=== PATIENT | female | born 1970 | race Caucasian/White ===

== ENCOUNTER 2016-12-27 10:44 | Day surgery (SDC) | payer OTHER ==
[2016-12-20 14:33] VITALS: BMI 24.4
[2016-12-27] VITALS (12 sets, daily range): BP systolic 101–132; BP diastolic 37–94; PULSE 62–96; RESP 16–29; Ht 167.6 cm; Wt 67.3 kg
[~2016-12-27] VITALS: Ht 167.6 cm; Wt 67.3 kg
[~2016-12-27 10:44] MED LIST: NORE1TAB27 PO
[2016-12-27] MEDS ORDERED: SOD CHLORIDE 0.9% 1,000 ML IV SCH (11:30)
[2016-12-27] MEDS ORDERED: CLINDAMYCIN 600 MG/D5W (PMX) 50 ML IVPB ONE ×2 (11:30→14:13)
[2016-12-27] MEDS ORDERED: BUPIVACAINE 0.25% (MPF) 30 ML INJ ONE (13:00)
[2016-12-27] MEDS ORDERED: PROPOFOL 20 ML ONE (13:06)
[2016-12-27] MEDS ORDERED: SUCCINYLCHOLINE CHLORIDE 100 MG/5 ML SYG IV ONE (13:06)
[2016-12-27] MEDS ORDERED: MIDAZOLAM 1 MG/ML 2 ML INJ ONE ×2 (13:06→14:57)
[2016-12-27] MEDS ORDERED: ROPIVACAINE 0.5 % 30 ML VIAL ONE (13:06)
[2016-12-27] MEDS ORDERED: ROCURONIUM 50 MG INJ ONE (13:06)
[2016-12-27] MEDS ORDERED: ONDANSETRON 4 MG INJ ONE (14:14)
[2016-12-27] MEDS ORDERED: DEXAMETHASONE 4 MG/ML 1 ML INJ ONE (14:14)
[2016-12-27] MEDS ORDERED: KETOROLAC 30 MG INJ ONE (14:36)
--- NOTE | 2016-12-27 14:49 | OPR ---
DATE OF OPERATION: 12/27/2016 INDICATION: This is a 46-year-old female with symptomatic gallstones. She requests surgical excisi on of her gallbladder. Risks, alternatives, benefits, and personnel were discussed with patient. P germania expressed understanding and consents to the operation. PREOPERATIVE DIAGNOSIS: Symptomatic gallstones. POSTOPERATIVE DIAGNOSIS: Symptomatic gallstones. OPERATION PERFORMED: 1. Laparoscopic cholecystectomy. 2. Therapeutic injections [place] [address]. SURGEON: Rafael Small MD TREATER: Jorge Florez MD SPECIMENS: Gallbladder. COMPLICATIONS: None. ANESTHESIA: General. PROCEDURE: The patient was taken to the OR and prepped in the usual sterile fashion. Surgical time out was performed. IV antibiotics were given. Infraumbilical incision was made transversely with a 15 blade. Dissection cautery was carried down to the fascia which was divided with curved [place] sci ssors. An 0 Vicryl U-stitch was placed into the fascia. Balloon Rico trocar was introduced. Pne umoperitoneum was established. Midepigastric 12 mm optical trocar and right upper quadrant and righ t upper flank 5 mm optical trocars are placed under direct visualization. Upon initial inspection, there were some adhesions to the gallbladder which were taken down bluntly. The cystic duct was russell ntified. The critical view was established. The cystic duct and cystic artery are divided using a 35 mm [place] vascular load stapler. The staple line was reinforced with clips. Gallbladder was ta hang off the gallbladder bed. There was good hemostasis. Gallbladder was retrieved using EndoCatch bag. Ports were removed under direct visualization, 0 Vicryl U-stitch was tied down. Skin was clos ed with skin cristofer. Therapeutic localized anesthesia is injected into all incision sites with 0.2 5% Marcaine, 10 mL are injected. Dry dressings were applied. Dictated By: RAFAEL SMALL MD SB/NTS Conf#: [id number] DID#: [id number] CC: JORGE FLOREZ MD;*EndCC*
[2016-12-27] MEDS ORDERED: DIPHENHYDRAMINE 50 MG INJ IV PRN (15:00)
[2016-12-27] MEDS ORDERED: HYDROCODONE/APAP (5/325) TAB PO ONE (15:00)
[2016-12-27] MEDS ORDERED: HYDROmorphONE (0.2 MG/ML) 10ML SYG IV PRN ×2 (15:00)
[2016-12-27] MEDS ORDERED: MEPERIDINE 25 MG INJ IV PRN (15:00)
[2016-12-27] MEDS ORDERED: MIDAZOLAM 1 MG/ML 2 ML INJ IV PRN (16:00)
[2016-12-27] MEDS ORDERED: METOCLOPRAMIDE 10 MG INJ ONE (16:13)
[2016-12-27] MEDS ORDERED: METOCLOPRAMIDE 10 MG INJ IV PRN (16:30)
== END 2016-12-27 17:58 | disposition home or self-care (01) ==
LOC: SDS 10:44
PROVIDERS: ATTEND Surgery
DX: K81.1 Chronic cholecystitis (principal); F41.9 Anxiety disorder, unspecified
CPT/HCPCS: 47562; 88304; J0330; J1100; J1170; J1885; J2175; J2250; J2405; J2765; J2795; J3010; Z7512; Z7610